=== PATIENT | male | born 1990 | race American Indian/Alaskan Native ===

== ENCOUNTER 2020-06-19 03:39 | Emergency (ER) | payer BC, OTHER ==
[2020-06-19 03:42] VITALS: BP 124/78; PULSE 106
[2020-06-19] MEDS ORDERED: Ketorolac 60 MG/2 ML SDV IM ONE (04:15)
[2020-06-19] MEDS ORDERED: Ketorolac 10 MG Tab ONE (04:21)
--- NOTE | 2020-06-19 04:23 | EDM.PDOC ---
ED HPI GENERAL MEDICAL PROBLEM - General Chief Complaint: Upper Extremity Injury/Pain Stated Complaint: shoulder pain Time Seen by Provider: 06/19/20 04:03 Source of Information: Reports: Patient History Limitations: Reports: No Limitations - History of Present Illness INITIAL COMMENTS - FREE TEXT/NARRATIVE: Mikey is a 29 yo male who presents to the ED via private vehicle with complaints of right shoulder pain. States he had been drinking tonight and last drink was around 10:00pm. States he was wrestling around with some friends and heard his shoulder pop 3 times when he came down on it. States he had the same thing happen to the left shoulder before and they had to pop it back in. States he did take 3 extra strength Tylenol tonight. Admits to moderate amount of alcohol use prior and thinks since he sobered up around 0300 the pain has intensified. Unable to raise his right arm. Right Shoulder Pain Score (Numeric/FACES): 9 - Related Data Allergies Allergy/AdvReac Type Severity Reaction Status Date / Time No Known Allergies Allergy Verified 06/19/20 03:42 Home Meds: Home Meds . [No Known Home Meds] 06/19/15 [History] Past Medical History - Past Health History Medical/Surgical History: Denies Medical/Surgical History HEENT History: Reports: None Cardiovascular History: Reports: None Respiratory History: Reports: None Gastrointestinal History: Reports: None Genitourinary History: Reports: None Musculoskeletal History: Reports: None Neurological History: Reports: None Psychiatric History: Reports: None Endocrine/Metabolic History: Reports: None Hematologic History: Reports: None Immunologic History: Reports: None Oncologic (Cancer) History: Reports: None Dermatologic History: Reports: None - Infectious Disease History Infectious Disease History: Reports: None - Past Surgical History Head Surgeries/Procedures: Reports: None HEENT Surgical History: Reports: Other (See Below) Other HEENT Surgeries/Procedures: nasal reconstructive surgery Social & Family History - Family History Family Medical History: No Pertinent Family History - Tobacco Use Tobacco Use Status *Q: Current Every Day Tobacco User Years of Tobacco use: 4 Packs/Tins Daily: 1 - Caffeine Use Caffeine Use: Reports: Soda - Recreational Drug Use Recreational Drug Use: Yes Recreational Drug Type: Reports: Marijuana/Hashish - Living Situation & Occupation Living situation: Reports: with Family Review of Systems - Review of Systems Review Of Systems: See Below Constitutional: Reports: No Symptoms Eyes: Reports: No Symptoms Ears: Reports: No Symptoms Nose: Reports: No Symptoms Mouth/Throat: Reports: No Symptoms Respiratory: Reports: No Symptoms Cardiovascular: Reports: No Symptoms GI/Abdominal: Reports: No Symptoms Musculoskeletal: Reports: Shoulder Pain (right), Arm Pain, Muscle Pain Skin: Reports: No Symptoms Neurological: Reports: No Symptoms Psychiatric: Reports: No Symptoms ED EXAM, GENERAL - Physical Exam Exam: See Below Exam Limited By: No Limitations General Appearance: Alert, Mild Distress Head: Atraumatic, Normocephalic Neck: Full Range of Motion, Tender Lateral (right trapezius muscle posterior to right clavicle). No: Tender Midline Back Exam: Vertebral Tenderness Extremities: Normal Capillary Refill, Arm Pain (tenderness noted with palpation along the mid to distal clavicle with palpation. Step off deformity noted. ), Limited Range of Motion (right shoulder, unable to abduct right arm) Neurological: Alert, Oriented Psychiatric: Normal Affect, Normal Mood Skin Exam: Warm, Dry, Intact, Normal Color Course - Vital Signs Last Recorded V/S: Last Vital Signs Temp 98.3 F 06/19/20 03:40 Pulse 106 H 06/19/20 03:40 Resp 16 06/19/20 03:40 BP 124/78 06/19/20 03:40 Pulse Ox 98 06/19/20 03:40 - Orders/Labs/Meds Orders: Active Orders 24 hr Category Date Time Status Shoulder Comp Rt [CR] Stat Exams 06/19/20 03:46 Ordered Meds: Medications Discontinued Medications Generic Name Dose Route Start Last Admin Trade Name Freq PRN Reason Stop Dose Admin Ketorolac Tromethamine 60 mg 06/19/20 04:15 06/19/20 04:25 Toradol IM 06/19/20 04:16 60 mg ONETIME ONE Administration Departure - Departure Time of Disposition: 04:36 Disposition: Home, Self-Care 01 Clinical Impression: Right shoulder pain Qualifiers: Chronicity: acute Qualified Code(s): M25.511 - Pain in right shoulder Separation of right acromioclavicular joint, type 1 Qualifiers: Encounter type: initial encounter Qualified Code(s): S43.101A - Unspecified dislocation of right acromioclavicular joint, initial encounter - Discharge Information Instructions: Shoulder Pain, Acromioclavicular Separation Referrals: PCP,None [Primary Care Provider] - Forms: ED Department Discharge Additional Instructions: 1) Wear right arm sling X 2 weeks 2) Referral to physical therapy, written order given 3) Ketorolac 10mg every 8 hours as needed for break thru pain 4) Recommend using Tylenol 650mg every 6 hours as needed for pain, no more than 4000mg in 24 hours 5) Ice - 20 minutes at a time, at least 5 times a day for next couple of days 6) Follow up if any concerns. Sepsis Event Note (ED) - Evaluation Sepsis Screening Result: No Definite Risk - Focused Exam Vital Signs: Vital Signs Temp Pulse Resp BP Pulse Ox 06/19/20 03:40 98.3 F 106 H 16 124/78 98 - Problem List & Annotations (1) Right shoulder pain SNOMED Code(s): 25111853, 77836268 Code(s): M25.511 - PAIN IN RIGHT SHOULDER Status: Acute Current Visit: Yes Qualifiers: Chronicity: acute Qualified Code(s): M25.511 - Pain in right shoulder (2) Separation of right acromioclavicular joint, type 1 SNOMED Code(s): 790868271 Code(s): S43.101A - UNSP DISLOCATION OF RIGHT ACROMIOCLAVICULAR JOINT, INIT Status: Acute Current Visit: Yes Qualifiers: Encounter type: initial encounter Qualified Code(s): S43.101A - Unspecified dislocation of right acromioclavicular joint, initial encounter - My Orders Last 24 Hours: My Active Orders 06/19/20 03:46 Shoulder Comp Rt [CR] Stat - Assessment/Plan Last 24 Hours: My Active Orders 06/19/20 03:46 Shoulder Comp Rt [CR] Stat Plan: X-rays reviewed and negative today. Relief noted when arm placed in sling. Toradol IM given. Take home packet will be given for Toradol as well. Will discharge home at this time. Patient appears to be in less discomfort and having normal conversation. See additional instructions.
[2020-06-19] MEDS ORDERED: Take Home: Ketorolac 10 MG Tab, 4 Tab Pack PO ONE (04:37)
== END 2020-06-19 04:48 | disposition home or self-care (01) ==
LOC: CC.ED 03:39
DX: S43.101A Unspecified dislocation of right acromioclavicular joint, initial encounter (principal); Z72.0 Tobacco use; X58.XXXA Exposure to other specified factors, initial encounter; Y93.72 Activity, wrestling
CPT/HCPCS: 73030; 96372; 99283; A9270; J1885